=== PATIENT | male | born 1975 | race Hispanic/Latino ===

== ENCOUNTER 2018-09-14 10:27 | Emergency (ER) | payer OTHER ==
[2018-09-14 10:42] VITALS: BMI 30.5
[2018-09-14 10:46] VITALS: BP 166/114; PULSE 91; RESP 18; TEMP 98.2; O2SAT 98
--- NOTE | 2018-09-14 17:06 | C.PDOC ---
History Of Present Illness 42-year-old male presents to the ED for bloodwork and urine test. 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 Patient denies head injury, LOC, and does not offer any physical complaints at this time. Chief Complaint (Nursing): Medical Clearance History Per: Patient History/Exam Limitations: no limitations Onset/Duration Of Symptoms: Hrs Additional History Per: Patient Past Medical History Reviewed: Historical Data, Nursing Documentation, Vital Signs Vital Signs: Last Vital Signs Temp 98.2 F 09/14/18 10:42 Pulse 91 H 09/14/18 10:42 Resp 18 09/14/18 10:42 BP 166/114 H 09/14/18 10:42 Pulse Ox 98 09/14/18 10:42 - Medical History PMH: No Chronic Diseases Surgical History: Back Surgery (x2) Family History: States: Unknown Family Hx - Social History Hx Alcohol Use: No Hx Substance Use: No - Immunization History Hx Tetanus Toxoid Vaccination: No Hx Influenza Vaccination: No Hx Pneumococcal Vaccination: No Review Of Systems Constitutional: Positive for: Other (bloodwork and urine testing ) Neurological: Negative for: Other (head injury, LOC ) Physical Exam - Physical Exam Appears: Non-toxic, No Acute Distress Skin: Normal Color, Warm, Dry Head: Atraumatic, Normacephalic Eye(s): bilateral: Normal Inspection Oral Mucosa: Moist Neck: Supple Chest: Symmetrical, No Deformity, No Tenderness Cardiovascular: Rhythm Regular, No Murmur Respiratory: Normal Breath Sounds, No Rales, No Rhonchi, No Wheezing Gastrointestinal/Abdominal: Soft, No Tenderness, No Guarding, No Rebound Extremity: Normal ROM, Capillary Refill (less than 2 seconds ) Neurological/Psych: Oriented x3, Normal Speech, Normal Cognition ED Course And Treatment O2 Sat by Pulse Oximetry: 98 (on RA) Pulse Ox Interpretation: Normal Medical Decision Making Medical Decision Making: I discussed with case with ED director, who states that as long as patient agrees to blood and urine test, staff will draw the blood. I explained to the patient that I cannot guarantee chain of custody once urine and blood left the ED with [facility] administration. Patient verbalizes understanding and is willing to undergo blood and urine florina ting. Disposition - Disposition Referrals: [facility] Yoel Dawn, [Non-Staff] - Disposition: HOME/ ROUTINE Disposition Time: 11:30 Condition: GOOD Additional Instructions: CHANDLER GRANT, thank you for letting us take care of you today. The emergency medical care you received today was directed at your acute symptoms. If you were prescribed any medication, please fill it and take as directed. It may take several days for your symptoms to resolve. Return to the Emergency Department if your symptoms worsen, do not improve, or if you have any other problems. Please contact your doctor or call one of the physicians/clinics you have been referred to that are listed on the Patient Visit Information form that is included in your discharge packet. Bring any paperwork you were given at discharge with you along with any medications you are taking to your follow up visit. Our treatment cannot replace ongoing medical care by a primary care provider outside of the emergency department. Thank you for allowing the [employer] team to be part of your care today. Follow up with your doctor as per [facility] protocol. Forms: [employer] (Polish) - Clinical Impression Clinical Impression: Medical assessment - Scribe Statement The provider has reviewed the documentation as recorded by the Scribe (Gail Mujica) Provider Attestation: All medical record entries made by the Scribe were at my direction and personally dictated by me. I have reviewed the chart and agree that the record accurately reflects my personal performance of the history, physical exam, medical decision making, and the department course for this patient. I have also personally directed, reviewed, and agree with the discharge instructions and disposition.
== END 2018-09-14 12:30 | disposition home or self-care (01) ==
LOC: C.ER 10:27
DX: Z00.00 Encounter for general adult medical examination without abnormal findings (principal)